=== PATIENT | female | born 1965 | race Caucasian/White ===

== ENCOUNTER 2017-05-20 17:17 | Emergency (ER) | payer OTHER ==
[~2017-05-20] VITALS: Ht 162.6 cm; Wt 83.0 kg
[2017-05-20 18:06] VITALS: Ht 162.6 cm; Wt 83.0 kg
[2017-05-20 21:25] VITALS: BP 126/87
== END 2017-05-20 21:25 | disposition home or self-care (01) ==
LOC: ED 17:17
DX: J98.01 Acute bronchospasm (principal); I10 Essential (primary) hypertension
CPT/HCPCS: J7512; J7613; J7644